=== PATIENT | female | born 1965 | race Caucasian/White ===

== ENCOUNTER 2016-12-10 12:43 | Emergency (ER) | payer OTHER ==
[~2016-12-10] VITALS: Ht 160 cm; Wt 90.9 kg
[2016-12-10 12:45] VITALS: BP 172/97; PULSE 75; RESP 16; TEMP 97.8; O2SAT 98
[2016-12-10] MEDS ORDERED: IBUPROFEN 800 MG TAB PO ONE (13:15)
[2016-12-10] MEDS ORDERED: MAGN400C2 (13:43)
[2016-12-10] MEDS ORDERED: VITA400C (13:43)
[2016-12-10] MEDS ORDERED: VITA20003 (13:43)
[2016-12-10] MEDS ORDERED: PROT40TA PO (13:43)
[2016-12-10] MEDS ORDERED: POTA10CA PO (13:43)
[2016-12-10] MEDS ORDERED: BENI5TAB4 PO (13:44)
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
[2016-12-10] MEDS ORDERED: IBUP800T23 PO (14:13)
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
== END 2016-12-10 15:19 | disposition home or self-care (01) ==
LOC: NEPB 12:43
DX: S52.124A Nondisplaced fracture of head of right radius, initial encounter for closed fracture (principal); I10 Essential (primary) hypertension; V28.3XXA Person boarding or alighting a motorcycle injured in noncollision transport accident, initial encounter; Y93.9 Activity, unspecified; Y92.9 Unspecified place or not applicable; Y99.9 Unspecified external cause status
CPT/HCPCS: 29105; 73080; 73502